=== PATIENT | male | born 1965 | race Caucasian/White ===

== ENCOUNTER 2020-03-20 18:43 | Emergency (ER) | payer OTHER ==
[~2020-03-20] VITALS: Ht 180.3 cm; Wt 91.3 kg
[2020-03-20 18:48] VITALS: BP 171/95
== END 2020-03-20 20:21 | disposition home or self-care (01) ==
LOC: ER 18:45
DX: I11.0 Hypertensive heart disease with heart failure (principal); I50.9 Heart failure, unspecified; R51.9 Headache, unspecified; R42 Dizziness and giddiness
CPT/HCPCS: 93005; 99283